=== PATIENT | female | born 1940 | race Caucasian/White ===

== ENCOUNTER 2016-05-31 02:09 | Inpatient (IN) | payer OTHER ==
[~2016-05-31] VITALS: Ht 160 cm; Wt 93.5 kg
[~2016-05-31 02:09] MED LIST: AFRIN,GENASAL D15 ML BOTH NARES; ALLEGRA ALLERG180 MG PO; ATROVENT H200 INHALA IH; CATAPRES0.1 MG PO; COZAAR50 MG PO; DUONEB 2.5-0.5 M3 ML AEROSOL; FLONASE ALLERG9.9 ML BOTH NARES; GLUCOPHAGE500 MG PO; GLUCOSAMINE-CH1 EA15 PO; LIPITOR40 MG PO; ONE DAILY WOME1 EAC2 PO; PLAVIX75 MG PO; PRESERVISION A1 EAC2 PO; PULMICORT FLEX90 MCG IH; SINGULAIR10 MG PO; SINUS RINSE PR1 EACH BOTH NARES; SYNTHROID88 MCG PO; ULTRAM50 MG PO; VEGETARIAN GLU750 MG PO; VITAMIN C500 M1 PO; VITAMIN D31000 UNI2 PO; ZOLOFT50 MG PO
[2016-05-31 02:27] LABS: HEMATOCRIT 41.8 % (36.0-46.0); MCH 27.4 PG (29.0-34.0); MCHC 33.5 G/DL (30.0-36.0); MCV 81.8 FL (83-99); MEAN PLAT.VOLUME 8.6 uM^3 (9.5-12.4); PLATELET COUNT 488 K/uL (156-360); RBC DIS.WIDTH-CV 13.5 % (11.8-14.6); RBC DIS.WIDTH-SD 40.3 % (39-53); RED BLOOD COUNT 5.11 M/uL (3.80-5.20); WHITE BLOOD COUNT 13.6 K/uL (4.1-10.2)
[2016-05-31 02:38] LABS: CHLORIDE 88 mEq/L (99-109); POTASSIUM 4.2 mEq/L (3.7-5.4); SODIUM 127 mEq/L (136-147)
[2016-05-31 02:40] LABS: GLUCOSE 136 mg/dL (70-99)
[2016-05-31 02:41] LABS: ANION GAP 14 MEQ/L (2-14)
[2016-05-31 02:42] LABS: TOTAL BILIRUBIN 0.9 mg/dL (0.0-1.0)
[2016-05-31 02:44] LABS: ALKALINE PHOSPHATASE 101 IU/L (3-129); GFR ESTIMATE (CALCULATED) > 59 mL/min/
[2016-05-31 02:45] LABS: UREA NITROGEN (BUN) 16 mg/dL (9-23)
[2016-05-31 03:27] LABS: LIPASE 20 U/L (1.0-51.0)
[2016-05-31 03:30] LABS: TROP-I INTERPRETATION NEGATIVE; TROPONIN-I < 0.01 ng/mL (0.0-0.30)
[2016-05-31] MEDS ORDERED: PULMICORT FLEX90 MCG IH (04:59)
[2016-05-31] MEDS ORDERED: LATANOPROST2.5 ML LEFT EYE (05:00)
[2016-05-31] MEDS ORDERED: ARICEPT5 MG PO (05:00)
[2016-05-31 05:48] VITALS: BP 118/59
[2016-05-31 06:15] LABS: POINT-OF-CARE METER ID UU14162513
[2016-05-31 07:35] VITALS: BP 133/60
[2016-05-31 08:11] LABS: ADD MIUA? NO; BILIRUBIN NEGATIVE; BLOOD NEGATIVE; COLOR YELLOW ((YELLOW)); GLUCOSE (STRIP) NEGATIVE; KETONES NEGATIVE; LEUKOCYTES NEGATIVE; NITRITE NEGATIVE; PROTEIN (STRIP) NEGATIVE; SPECIFIC GRAVITY 1.027 (1.000-1.030); UCUL ADDED? NO; UROBILINOGEN 0.2 MG/DL (0.2-1.0)
[2016-05-31 10:38] LABS: MCH 27.5 PG (29.0-34.0); MCHC 33.7 G/DL (30.0-36.0); MCV 81.5 FL (83-99); PLATELET COUNT 456 K/uL (156-360); RBC DIS.WIDTH-CV 13.7 % (11.8-14.6); RBC DIS.WIDTH-SD 40.1 % (39-53); RED BLOOD COUNT 4.66 M/uL (3.80-5.20); WHITE BLOOD COUNT 11.7 K/uL (4.1-10.2)
[2016-05-31 11:01] LABS: ALKALINE PHOSPHATASE 80 IU/L (3-129); ANION GAP 11 MEQ/L (2-14); CHLORIDE 90 MEQ/L (99-109); GFR ESTIMATE (CALCULATED) > 59 mL/min/; GLUCOSE 103 mg/dL (70-99); POTASSIUM 3.9 MEQ/L (3.7-5.4); SAMPLE HEMOLYSIS CHECK 0; SAMPLE ICTERIC CHECK 0; SAMPLE LIPEMIA CHECK 0; SODIUM 127 MEQ/L (136-147); TOTAL BILIRUBIN 0.8 MG/DL (0.0-1.0); UREA NITROGEN (BUN) 13 mg/dL (9-23)
[2016-05-31 11:15] LABS: TROP-I INTERPRETATION NEGATIVE; TROPONIN-I < 0.01 ng/mL (0.0-0.30)
[2016-05-31 11:54] VITALS: BP 116/58
[2016-05-31] MEDS ORDERED: GLUCOPHAGE500 MG PO (11:54)
[2016-05-31] MEDS ORDERED: ZOFRAN4 MG PO (12:10)
[2016-05-31] MEDS ORDERED: PROAIR HFA8.5 GM IH (12:11)
[2016-05-31] MEDS ORDERED: CALCIUM 500 +1 EAC5 PO (12:11)
[2016-05-31 12:55] LABS: POINT-OF-CARE METER ID UU13113831
[2016-05-31 16:00] VITALS: BP 106/58
[2016-05-31 16:19] LABS: TROP-I INTERPRETATION NEGATIVE; TROPONIN-I < 0.01 ng/mL (0.0-0.30)
[2016-05-31 17:38] LABS: POINT-OF-CARE METER ID UU13113831
[2016-05-31 20:30] VITALS: BP 106/60
[2016-06-01 00:50] VITALS: BP 122/65
[2016-06-01 03:41] VITALS: BP 124/68
[2016-06-01 06:55] LABS: BASOPHIL COUNT 0.1 K/uL (0-0.1); EOSINOPHIL COUNT 0.2 K/uL (0-0.3); HEMATOCRIT 35.7 % (36.0-46.0); IMMATURE GRANULOCYTE (%) 0.2 % (0.0-0.7); INSTRUMENT ABS NEUTROPHIL CT 4.8 K/uL; LYMPHOCYTE COUNT 2.9 K/uL (1.0-2.8); MCH 27.7 PG (29.0-34.0); MCHC 33.3 G/DL (30.0-36.0); MCV 83.2 FL (83-99); MEAN PLAT.VOLUME 9.3 uM^3 (9.5-12.4); MONOCYTE (%) 9.8 % (3-12); MONOCYTE COUNT 0.9 K/uL (0-0.8); NEUTROPHIL (%) 54.6 % (45-76); NEUTROPHIL COUNT 4.8 K/uL (1.8-6.4); PLATELET COUNT 432 K/uL (156-360); RBC DIS.WIDTH-SD 41.9 % (39-53); RED BLOOD COUNT 4.29 M/uL (3.80-5.20); WHITE BLOOD COUNT 8.8 K/uL (4.1-10.2)
[2016-06-01 07:29] LABS: ANION GAP 10 MEQ/L (2-14); GFR ESTIMATE (CALCULATED) > 59 mL/min/; GLUCOSE 107 mg/dL (70-99); POTASSIUM 3.6 MEQ/L (3.7-5.4); SAMPLE HEMOLYSIS CHECK 0; SAMPLE ICTERIC CHECK 0; SAMPLE LIPEMIA CHECK 0; UREA NITROGEN (BUN) 13 mg/dL (9-23)
[2016-06-01 07:35] LABS: CHLORIDE 101 MEQ/L (99-109); SODIUM 137 MEQ/L (136-147)
[2016-06-01 07:46] VITALS: BP 126/68
[2016-06-01 08:12] LABS: POINT-OF-CARE METER ID UU14162513
[2016-06-01] MEDS ORDERED: ZOFRAN4 MG PO (10:18)
[2016-06-01 11:07] VITALS: BP 128/64
[2016-06-01 11:54] LABS: POINT-OF-CARE METER ID UU13113700
[2016-06-01] MEDS ORDERED: NEXIUM20 MG PO (12:18)
== END 2016-06-01 15:07 | disposition home or self-care (01) | DRG 392 ==
LOC: EME 02:09 → EDOF 04:18 → 5WEST 04:18 → EDOF 04:18 → 5WEST 05:36
PROVIDERS: Emergency Medicine; Hospitalist; Internal Medicine; Physician Assistant Medical
DX: K52.9 Noninfective gastroenteritis and colitis, unspecified (principal); E87.1 Hypo-osmolality and hyponatremia; R65.10 Systemic inflammatory response syndrome (SIRS) of non-infectious origin without acute organ dysfunction; J44.9 Chronic obstructive pulmonary disease, unspecified; I50.9 Heart failure, unspecified; J32.4 Chronic pansinusitis; I10 Essential (primary) hypertension; E11.9 Type 2 diabetes mellitus without complications; E03.9 Hypothyroidism, unspecified; H35.30 Unspecified macular degeneration; E66.9 Obesity, unspecified; I16.0 Hypertensive urgency; D25.9 Leiomyoma of uterus, unspecified; M48.00 Spinal stenosis, site unspecified; Z68.36 Body mass index [BMI] 36.0-36.9, adult; Z86.73 Personal history of transient ischemic attack (TIA), and cerebral infarction without residual deficits
CPT/HCPCS: 70450; 74177; 80048; 80053; 81003; 82948; 83605; 83690; 84484; 85025; 85027; 87493; 93005; 94640; 94640 76; 99281; 99285; J0360; J1815; J2270; J2405; J2765; J3480; J7030; J7120; S0028

== ENCOUNTER → 2016-10-15 | Outpatient (CLI) | payer OTHER ==
[~2016-10-15] VITALS: Ht 160 cm; Wt 93.0 kg
[~2016-10-15] MED LIST changes: +ARICEPT5 MG PO; +CALCIUM 500 +1 EAC5 PO; +LATANOPROST2.5 ML LEFT EYE; +NEXIUM20 MG PO; +PROAIR HFA8.5 GM IH; +ZOFRAN4 MG PO
[2016-10-15 10:30] LABS: POINT-OF-CARE METER ID UU14107333
== END | disposition home or self-care (01) ==
LOC: AMB 09:37 → OPR 10:00 → AMB 10:00
PROVIDERS: Internal Medicine
DX: Z12.11 Encounter for screening for malignant neoplasm of colon (principal); D12.2 Benign neoplasm of ascending colon; D12.8 Benign neoplasm of rectum; K63.5 Polyp of colon; Z86.010 Personal history of colon polyps; Z80.0 Family history of malignant neoplasm of digestive organs; K21.9 Gastro-esophageal reflux disease without esophagitis; I11.0 Hypertensive heart disease with heart failure; I50.9 Heart failure, unspecified; J44.9 Chronic obstructive pulmonary disease, unspecified; E78.5 Hyperlipidemia, unspecified; E11.9 Type 2 diabetes mellitus without complications; E03.9 Hypothyroidism, unspecified; E66.9 Obesity, unspecified; Z68.34 Body mass index [BMI] 34.0-34.9, adult; Z86.19 Personal history of other infectious and parasitic diseases; Z86.73 Personal history of transient ischemic attack (TIA), and cerebral infarction without residual deficits; Z82.49 Family history of ischemic heart disease and other diseases of the circulatory system; Z80.3 Family history of malignant neoplasm of breast; Z79.84 Long term (current) use of oral hypoglycemic drugs; Z79.02 Long term (current) use of antithrombotics/antiplatelets; Z77.22 Contact with and (suspected) exposure to environmental tobacco smoke (acute) (chronic)
CPT/HCPCS: 82948; 88305; 94640

== ENCOUNTER 2017-01-29 19:55 | Emergency (ER) | payer OTHER ==
[~2017-01-29] VITALS: Ht 160 cm; Wt 94.4 kg
[2017-01-29 21:46] VITALS: BP 182/78
== END 2017-01-29 21:47 | disposition home or self-care (01) ==
LOC: EME 19:55
DX: S00.83XA Contusion of other part of head, initial encounter (principal); S05.11XA Contusion of eyeball and orbital tissues, right eye, initial encounter; S63.501A Unspecified sprain of right wrist, initial encounter; W18.09XA Striking against other object with subsequent fall, initial encounter; I11.0 Hypertensive heart disease with heart failure; I50.9 Heart failure, unspecified; K21.9 Gastro-esophageal reflux disease without esophagitis; J44.9 Chronic obstructive pulmonary disease, unspecified; F32.9 Major depressive disorder, single episode, unspecified; Z86.73 Personal history of transient ischemic attack (TIA), and cerebral infarction without residual deficits; Z79.02 Long term (current) use of antithrombotics/antiplatelets
CPT/HCPCS: 70450; 70486; 73110; 99281; 99284